=== PATIENT | female | born 1965 | race African-American/Black ===

== ENCOUNTER 2019-01-08 19:27 | Emergency (ER) | payer OTHER ==
[~2019-01-08] VITALS: Ht 154.9 cm; Wt 69.0 kg
[~2019-01-08 19:27] MED LIST: ALLERGY10 M2 PO; ERYTHROMYCIN250 MG PO; LISINOPRIL20 MG PO; OMEPRAZOLE40 MG PO
[2019-01-08 21:03] LABS: EOSINOPHILS 0.6 % (0.0-3.0); HEMATOCRIT 34.1 % (37.0-47.0); HEMOGLOBIN 10.8 gm/dL (12.0-15.0); MCH 22.4 pg (26.0-34.0); MCHC 31.6 g/dL (28.0-37.0); MCV 70.8 fL (80.0-100.0); MONOCYTES 8.3 % (1.0-8.0); PLATELET COUNT 430 thou/uL (150-400); POLYS 62.1 % (36.0-66.0); RBC 4.82 mil/uL (4.20-5.00); RDW 16.3 % (10.5-14.5); WBC 12.9 thou/uL (4.0-11.0)
[2019-01-08] MEDS ORDERED: CARAFATE 1 GM TA1 G1 PO (21:09)
[2019-01-08] MEDS ORDERED: FLOVENT HFA 4444 MCG INH (21:09)
[2019-01-08] MEDS ORDERED: MYRBETRIQ25 MG PO (21:10)
[2019-01-08] MEDS ORDERED: REMERON15 MG PO (21:10)
[2019-01-08] MEDS ORDERED: LINZESS72 MCG PO (21:10)
[2019-01-08] MEDS ORDERED: HYDROCHLOROTHIA25 M2 PO (21:10)
[2019-01-08] MEDS ORDERED: ZANTAC 150MG T150 MG PO (21:11)
[2019-01-08] MEDS ORDERED: LISINOPRIL40 MG PO (21:11)
[2019-01-08] MEDS ORDERED: VITAMIN D250 MCG PO (21:11)
[2019-01-08] MEDS ORDERED: LEVORA-281 EACH PO (21:13)
[2019-01-08 21:16] LABS: CALCIUM 8.9 mg/dL (8.5-10.1); CREATININE 1.4 mg/dL (0.6-1.0); POTASSIUM 3.2 mmol/L (3.5-5.1)
[2019-01-08 21:20] LABS: ALBUMIN 3.6 g/dL (3.4-5.0); TOTAL BILIRUBIN 0.2 mg/dL (<0.1-1.0); TOTAL PROTEIN 8.3 g/dL (6.4-8.2)
[2019-01-08] MEDS ORDERED: HYDROCODONE-AP1 EAC6 PO (22:51)
[2019-01-09 00:10] VITALS: BP 145/92
== END 2019-01-09 00:13 | disposition home or self-care (01) ==
LOC: ER 19:27
PROVIDERS: Physician Assistant
DX: R10.32 Left lower quadrant pain (principal); R10.84 Generalized abdominal pain